=== PATIENT | male | born 1950 | race Caucasian/White ===

== ENCOUNTER → 2024-11-03 | Outpatient (CLI) | payer MEDICARE | LOC: M CARPUL 07:13 | PROVIDERS: ATTEND Internal Medicine Cardiovascular Disease | DX: Z01.810 Encounter for preprocedural cardiovascular examination (principal); R06.02 Shortness of breath; R94.31 Abnormal electrocardiogram [ECG] [EKG]; L72.3 Sebaceous cyst; Z79.01 Long term (current) use of anticoagulants | CPT/HCPCS: 78452; 93017; A9500; J2785 ==